=== PATIENT | female | born 1985 | race Caucasian/White ===

== ENCOUNTER 2018-12-19 15:34 | Inpatient (IN) | payer OTHER ==
[~2018-12-19 15:34] MED LIST: PRENATAL FORMU1 EAC1 PO
--- NOTE | 2018-12-19 15:57 | PR ---
[facility] [address] [facility] [place], [place] [address] Signed AP Progress Notes Datetime Report Generated by CPN: 12/19/2018 15:57 PHYSICAL EXAM: [id number] VITAL SIGNS: [id number] Vital Signs: Reviewed; Within Normal Limits EXAM: [id number] Dilatation: 5.0 Effacement: 80 Station: -3 MEMBRANES: [id number] Membranes: Intact Fetus A: [id number] FHR Baseline: 145/155 Variability: Moderate 6-25bpm Presentation: Vertex Fetus B: [id number] PROGRESS NOTES: [id number] Plan: Call to [facility]; discussed case with Dr. Melvina Andrews agrees to accept patient [facility] called -on way Discussed plan with patient, discussed risks vs benefits of transport, questions answered. Patient agrees to transport to [facility] Signing Physician: Smith Mccann MD Copies: ~ *Electronically Signed* 12/19/18 1557 SMITH MCCANN MD PATIENT NAME: LANA LOUIS PROGRESS NOTE DATE OF : 85 PHYSICIAN: SMITH MCCANN MD RPT #: [id number] REPORT IS CONFIDENTIAL AND NOT TO BE RELEASED WITHOUT AUTHORIZATION
--- NOTE | 2018-12-19 16:24 | PR ---
[facility] [address] [facility] [place], [place] [address] Signed AP Progress Notes Datetime Report Generated by CPN: 12/19/2018 16:24 Chief Complaint: labor, not feeling contractions now PHYSICAL EXAM: [id number] General: Normal Abdomen: Normal Geniturinry Exam: Normal Pelvic: Adequate VITAL SIGNS: [id number] Vital Signs: Reviewed; Within Normal Limits EXAM: [id number] Dilatation: 5.0 Effacement: 80 Station: -3 Contraction Comments: rare MEMBRANES: [id number] Membranes: Intact Fetus A: [id number] FHR Baseline: 140/150 Variability: Moderate 6-25bpm Presentation: Vertex Fetus B: [id number] PROGRESS NOTES: [id number] Impression: Twins with Labor - Stable Cervix 5 cm Plan: [facility] here, ready to transport, but would like repeat cx check before leaving: No change in cervix from office. [facility] Signing Physician: Smith Mccann MD Copies: ~ *Electronically Signed* 12/19/18 1624 SMITH MCCANN MD PATIENT NAME: LANA LOUIS VICENTE PROGRESS NOTE DATE OF : 85 PHYSICIAN: SMITH MCCANN MD RPT #: [id number] REPORT IS CONFIDENTIAL AND NOT TO BE RELEASED WITHOUT AUTHORIZATION
== END 2018-12-19 16:37 | disposition short-term general hospital (02) | DRG 833 ==
LOC: FBC 15:34 → FBCO 15:34 → FBC 15:46 → EDSTATUS 16:59
PROVIDERS: ADMIT General Practice
DX: O60.03 Preterm labor without delivery, third trimester (principal); Z3A.31 31 weeks gestation of pregnancy; O30.043 Twin pregnancy, dichorionic/diamniotic, third trimester
CPT/HCPCS: 85027; 96365; 96372; J0610; J0702; J3105; J3475

== ENCOUNTER 2021-01-15 02:08 | Emergency (ER) | payer OTHER ==
[~2021-01-15] VITALS: Ht 165.1 cm; Wt 70.3 kg
--- OUTSIDE RECORDS SUMMARY | 2021-01-15 02:10 | XMS ---
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 [facility] has no Care Guidelines for this patient. Feliciano VISIT COUNT (12 MO.) 1 MARKUS Gallegos TOTAL 1 NOTE: Visits indicate total known visits. ED/UCC VISIT TRACKING (12 MO.) 01/15/2021 02:08 [facility] [place] TYPE: Emergency COMPLAINT: - CHEST PAIN INPATIENT VISIT TRACKING (12 MO.) No inpatient visits to display in this time frame [email or web address]
--- NOTE | 2021-01-15 15:11 | EKG ---
[facility] [address] [facility] [place], [place] [address] Signed Normal sinus rhythm Normal ECG No previous ECGs available Confirmed by ROSSANA CASTANEDA MD ([id number]) on 01/15/2021 3:11:27 PM Electronically Signed By: ROSSANA CASTANEDA MD 01/15/21 1511 PATIENT NAME: LANA LOUIS Electrocardiogram DATE OF : 85 PHYSICIAN: ROSSANA CASTANEDA MD REPORT #: [id number] REPORT IS CONFIDENTIAL AND NOT TO BE RELEASED WITHOUT AUTHORIZATION
== END 2021-01-15 03:42 | disposition home or self-care (01) ==
LOC: ED 02:08
DX: R07.89 Other chest pain (principal)
CPT/HCPCS: 71045; 80053; 83735; 84484; 85025; 93005; 93010; 99285-25

== ENCOUNTER 2022-03-20 23:10 | Emergency (ER) | payer OTHER ==
[~2022-03-20] VITALS: Ht 165.1 cm; Wt 72.6 kg
[2022-03-20] MEDS ORDERED: ATIVAN1 MG PO (23:35)
--- NOTE | 2022-03-21 14:08 | EKG ---
[facility] [address] [facility] [place] [address] Signed Normal sinus rhythm Incomplete left bundle branch block Borderline ECG When compared with ECG of 15-JAN-2021 02:13, No significant change was found Confirmed by JACKIE HENDERSON MD ([id number]) on 03/21/2022 2:07:42 PM Electronically Signed By: JACKIE HENDERSON MD 03/21/22 1408 PATIENT NAME: HERIBERTOCEZARYONI ZHANG Electrocardiogram DATE OF : 85 PHYSICIAN: JACKIE HENDERSON MD REPORT #: [id number] REPORT IS CONFIDENTIAL AND NOT TO BE RELEASED WITHOUT AUTHORIZATION
== END 2022-03-21 00:39 | disposition home or self-care (01) ==
LOC: ED 23:10
DX: F41.9 Anxiety disorder, unspecified (principal)
CPT/HCPCS: 93005; 93010; 99283-25; A9270-GY

== ENCOUNTER 2022-06-24 14:38 | Emergency (ER) | payer OTHER ==
[~2022-06-24] VITALS: Ht 165.1 cm; Wt 72.6 kg
[~2022-06-24 14:38] MED LIST changes: +ATIVAN1 MG PO
[2022-06-24] MEDS ORDERED: WELLBUTRIN SR150 MG PO (15:24)
[2022-06-24] MEDS ORDERED: MIRALAX119 GM PO (15:39)
[2022-06-24] MEDS ORDERED: PRILOSEC OTC20 MG PO (16:56)
--- NOTE | 2022-06-26 07:11 | EKG ---
[facility] [address] [facility] [place], [place] [address] Signed Normal sinus rhythm Normal ECG When compared with ECG of 20-MAR-2022 23:13, Questionable change in QRS axis Confirmed by ROSSANA CASTANEDA MD ([id number]) on 06/26/2022 7:11:12 AM Electronically Signed By: ROSSANA CASTANEDA MD 06/26/22 0711 PATIENT NAME: LANA LOUIS VICENTE Electrocardiogram DATE OF : 85 PHYSICIAN: ROSSANA CASTANEDA MD REPORT #: [id number] REPORT IS CONFIDENTIAL AND NOT TO BE RELEASED WITHOUT AUTHORIZATION
== END 2022-06-24 17:06 | disposition home or self-care (01) ==
LOC: ED 14:38
DX: K29.70 Gastritis, unspecified, without bleeding (principal); K59.00 Constipation, unspecified; Z79.899 Other long term (current) drug therapy
CPT/HCPCS: 36415; 80053; 81001; 83690; 85025; 93005; 93010; 99284-25

== ENCOUNTER 2023-12-19 21:57 | Emergency (ER) | payer OTHER ==
[~2023-12-19] VITALS: Ht 165.1 cm; Wt 60.0 kg
[~2023-12-19 21:57] MED LIST changes: +MIRALAX119 GM PO; +PRILOSEC OTC20 MG PO; +WELLBUTRIN SR150 MG PO
--- OUTSIDE RECORDS SUMMARY | 2023-12-19 22:01 | XMS ---
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 PHONE: [phone] Itz has no Care Guidelines for this patient. E.D. VISIT COUNT (12 MO.) 1 MARKUS Gallegos TOTAL 1 NOTE: Visits indicate total known visits. ED/UCC VISIT TRACKING (12 MO.) 12/19/2023 21:58 [facility] [place] TYPE: Emergency COMPLAINT: - NAUSEA INPATIENT VISIT TRACKING (12 MO.) No inpatient visits to display in this time frame [id number]
[2023-12-19] MEDS ORDERED: droPERidol 5 MG/2 ML VIAL IV ONE (22:15)
[2023-12-19] MEDS ORDERED: SODIUM CHLORIDE 0.9% 1,000 ML IV ONE (22:15)
[2023-12-19 22:24] LABS: BASOPHILS 0.5 % (0-2); EOSINOPHILS 1.2 % (0-6); HEMATOCRIT 37.3 % (35.0-50.0); HEMOGLOBIN 12.5 g/dL (12.0-18.0); LYMPHOCYTES 39.6 % (24-44); MCH 30.1 (27-36); MCHC 33.6 g/dl (30-36); MCV 89.6 fl (81-99); MONOCYTES 6.5 % (0-12); NEUTROPHILS 52.2 % (39-80); PLATELET COUNT 375 K/uL (140-440); RBC 4.17 M/ul (4.3-5.7); RDW 13.5 (10.5-15.0)
[2023-12-19] MEDS ORDERED: DEXTROAMPHETAMI10 MG PO (22:29)
[2023-12-19 22:40] LABS: ALBUMIN 3.9 g/dL (3.4-5.0); ALBUMIN/GLOBULIN RATIO 1.08 (1.1-2.4); ANION GAP 12.6 (7-21); BILIRUBIN, TOTAL 0.3 ng/dL (0.2-1.0); BUN/CREATININE RATIO 15.27 (6.0-28.6); CALCIUM 9.4 mg/dL (8.5-10.1); CREATININE, SERUM 0.72 mg/dL (0.55-1.02); POTASSIUM 3.6 mmol/L (3.5-5.1); PROTEIN, TOTAL 7.5 g/dL (6.4-8.2)
[2023-12-19 23:04] LABS: INFLUENZA B NAA NEGATIVE (NEGATIVE); RESPIRATORY SYNCYTIAL VIR NAA NEGATIVE (NEGATIVE)
[2023-12-19 23:29] LABS: BILIRUBIN, URINE NEGATIVE (negative); BLOOD/HGB, URINE NEGATIVE (Negative); KETONE, URINE NEGATIVE (Negative); LEUK ESTERASE, URINE NEGATIVE (negative); NITRITE, URINE POSITIVE (negative); PH, URINE 5.5 (5-7)
[2023-12-19 23:33] LABS: EPITHELIAL CELLS, URINE SQUAMOUS 1+ /lpf (0-1+)
[2023-12-19 23:36] LABS: BACTERIA, URINE 3+ /hpf (negative); CASTS, URINE NONE SEEN \\lpf; CRYSTALS, URINE NONE SEEN (0-1+); RED BLOOD CELLS, URINE 0-1 /hpf (0-5); REFLEX CULTURE, URINE Yes (No)
[2023-12-19] MEDS ORDERED: ONDANSETRON ODT8 MG PO (23:40)
[2023-12-19] MEDS ORDERED: MACROBID 100 M100 MG PO (23:40)
[2023-12-19] MEDS ORDERED: NITROFURANTOIN MONOHYD MACROCR 100 MG HOME.PACK PO ONE (23:45)
[2023-12-19] MEDS ORDERED: ONDANSETRON 4 MG HOME.PACK SL ONE (23:45)
[2023-12-19 23:55] VITALS: BP 128/81
== END 2023-12-19 23:50 | disposition home or self-care (01) ==
LOC: ED 21:57
PROVIDERS: Family Medicine
DX: N39.0 Urinary tract infection, site not specified (principal); Z11.52 Encounter for screening for COVID-19; Z79.899 Other long term (current) drug therapy
CPT/HCPCS: 36415; 74022; 80053; 81001; 83690; 84703; 85025; 87088; 87502; 96374; 99284-25; A9270; J1790; J7030; U0002